=== PATIENT | female | born 1965 | race Caucasian/White ===

== ENCOUNTER → 2023-08-15 | Outpatient (CLI) | payer MEDICARE ==
[~2023-08-15] MED LIST: NABU500 PO
[2023-08-20 10:07] LABS: HPV HIGH RISK BY TMA Not Detected; HPV SOURCE Cervical
== END ==
LOC: LAB 15:25 → LAB SHORT 15:25
PROVIDERS: Family Medicine
DX: Z01.419 Encounter for gynecological examination (general) (routine) without abnormal findings (principal)
CPT/HCPCS: 87624; G0123

== ENCOUNTER 2023-09-22 09:19 | Day surgery (SDC) | payer MEDICARE ==
[~2023-09-22] VITALS: Ht 154.9 cm; Wt 95.6 kg
[2023-09-22] MEDS ORDERED: ATEN50 PO (09:54)
[2023-09-22] MEDS ORDERED: FURO40 PO (09:56)
[2023-09-22] MEDS ORDERED: Midazolam HCL 1 MG/ML 5MLVIAL ONE (10:05)
[2023-09-22] MEDS ORDERED: Lactated Ringer's 1,000 ML IV ONE (10:10)
[2023-09-22] MEDS ORDERED: propofoL 20 ML IV ONE ×2 (10:32→10:33)
[2023-09-22] MEDS ORDERED: Phenylephrine HCl 100 MCG/ML-NS 10MLSYR (1MG/10ML) ONE (10:33)
[2023-09-22] MEDS ORDERED: DiphenhydrAMINE HCl 50 MG/ML 1ML Vial ONE (10:57)
[2023-09-22] MEDS ORDERED: Ondansetron HCl 2 MG / ML 2ML Vial ONE (10:57)
[2023-09-22] MEDS ORDERED: Ketorolac Tromethamine 30mg Vial ONE (10:57)
[2023-09-22] MEDS ORDERED: Dexamethasone Sod Phos 10 MG/ML 1ML VIAL ONE (10:57)
[2023-09-22] MEDS ORDERED: Silver Nitr/Potassium Nitrate 1 EA APPL ONE ×2 (11:04→11:06)
[2023-09-22] MEDS ORDERED: Silver Nitr/Potassium Nitrate 1 EA APPL XX ONE (11:07)
--- NOTE | 2023-09-22 11:49 | NUR ---
09/22/23 1149 EVA BENITEZ PT VERY ANXIOUS WHEN SHE WAKES ASKING FOR SPOUSE
[2023-09-22 12:01] VITALS: BP 124/71
--- NOTE | 2023-09-22 12:13 | NUR ---
09/22/23 1213 Tavia Morillo ASSUMED CARE OF PATIENT FROM OXANA VELASQUEZ. PATIENT IN RECLINER, AT SIDE. VSS. PT HAS NO C/O PAIN OR NAUSEA. DOES COMPLAIN WHEN BP CUFF INFLATES AND IV SITE. WILL CONTINUE TO MONITOR.
== END 2023-09-22 12:53 | disposition home or self-care (01) ==
LOC: ORSCSDS 09:19
PROVIDERS: Obstetrics & Gynecology
PROC: 0UDB8ZX Extraction of Endometrium, Via Natural or Artificial Opening Endoscopic, Diagnostic (ICD-10-PCS; principal; 2023-09-22 10:30)
DX: N95.0 Postmenopausal bleeding (principal); N84.0 Polyp of corpus uteri; R93.89 Abnormal findings on diagnostic imaging of other specified body structures; I10 Essential (primary) hypertension; K21.9 Gastro-esophageal reflux disease without esophagitis; E66.9 Obesity, unspecified; Z68.39 Body mass index [BMI] 39.0-39.9, adult; Z79.899 Other long term (current) drug therapy
CPT/HCPCS: 88305; A9270; J1100; J1200; J1885; J2250; J2371; J2405; J2704